=== PATIENT | female | born 1965 | race Caucasian/White ===

== ENCOUNTER 2021-09-24 07:03 | Day surgery (SDC) | payer MEDICARE, MEDICAID ==
[2021-09-17 15:22] LABS: BASOPHILS # (AUTO) 0.1 X10'3 (0-0.2); BASOPHILS % (AUTO) 0.9 % (0-1); EOSINOPHILS # (AUTO) 0.2 X10'3 (0-0.9); EOSINOPHILS % (AUTO) 3.5 % (0-6); LYMPHOCYTES # (AUTO) 1.7 X10'3 (1.1-4.8); MEAN CORPUSCULAR HEMOGLOBIN 28.6 PG (27.0-31.0); MEAN CORPUSCULAR HGB CONC 33.7 g/dL (33.0-36.5); MEAN CORPUSCULAR VOLUME 84.8 FL (78-98); MEAN PLATELET VOLUME 7.4 FL (7.4-10.4); MONOCYTES # (AUTO) 0.5 X10'3 (0-0.9); MONOCYTES % (AUTO) 9.5 % (2-12); NEUTROPHILS # (AUTO) 3.3 X10'3 (1.8-7.7); NEUTROPHILS % (AUTO) 57.1 % (42-75); PRE OP HEMATOCRIT 39.1 % (35.0-45.0); PRE OP HEMOGLOBIN 13.2 g/dL (12.0-16.0); PRE OP PLATELET COUNT 224 X10'3 (140-440); RED BLOOD COUNT 4.61 X10'6 (4.20-5.60); RED CELL DISTRIBUTION WIDTH 13.9 % (11.5-14.5)
[2021-09-17 15:37] LABS: ALBUMIN 4.1 G/DL (3.4-5.0); ALBUMIN/GLOBULIN RATIO 1.1 (1.1-1.5); ALKALINE PHOSPHATASE 50 IU/L (46-116); BLOOD UREA NITROGEN 12 MG/DL (7-18); BUN/CREATININE RATIO 11.8 (6.6-38.0); CALCIUM 9.2 MG/DL (8.5-10.1); CHLORIDE 102 MMOL/L (99-107); CREATININE 1.02 MG/DL (0.40-0.90); PRE OP ALT 32 U/L (30-65); PRE OP ANION GAP 8 (8-16); PRE OP AST 14 U/L (10-37); PRE OP BILIRUB, TOTAL 0.3 MG/DL (0.0-1.0); PRE OP GLUCOSE 103 MG/DL (70-104); PRE OP SODIUM 139 MMOL/L (135-145); TOTAL CARBON DIOXIDE 29.2 MMOL/L (24-32); TOTAL PROTEIN 7.7 G/DL (6.4-8.2); eGFR 56 ML/MIN
[2021-09-24] VITALS (10 sets, daily range): BP systolic 121–137; BP diastolic 65–86
[~2021-09-24] VITALS: Ht 264.2 cm; Wt 106.9 kg
[~2021-09-24 07:03] MED LIST: ARMO250T6 PO; BUPIVAcaine/PF 2.5 mg/ml (0.25%) 30ml vial ONE; FLUO40CA PO; HYDR25TA5 PO; LAMO150T6 PO; LEVO200T8 PO; LURA60TA PO; PRAZ1CAP5 PO; [UNRECOGNIZED DRUG - OTHER]; ceFAZolin inj. 2,000 MG in dextrose 5%-water 100 ML IV ONE; famotidine 20mg tablet PO ONE; ringers solution, lacted 1,000 ML IV SCH
[2021-09-24] MEDS ORDERED: LIDOcaine 0.5% (5mg/ml) 50ml vial ONE ×2 (07:10→08:22)
[2021-09-24] MEDS ORDERED: fentaNYL/PF 50MCG/1 ML 2ML syringe IV PRN ×2 (08:55)
[2021-09-24] MEDS ORDERED: ondansetron/PF 4mg/2ml inj IV PRN (08:55)
[2021-09-24] MEDS ORDERED: labetalol 20mg/4ml (5mg/ml) syringe IV PRN (08:55)
[2021-09-24] MEDS ORDERED: ringers solution, lacted 1,000 ML IV SCH (08:55)
[2021-09-24] MEDS ORDERED: morphine 2 MG/ML inj. syringe IV PRN (08:55)
[2021-09-24] MEDS ORDERED: hydrALAZINE 20mg/ml inj. IV PRN (08:55)
[2021-09-24] MEDS ORDERED: morphine 4 MG/ML inj SYRINge IV PRN (08:55)
[2021-09-24] MEDS ORDERED: fentaNYL/PF 50MCG/1 ML 2ML syringe ONE (09:37)
[2021-09-24] MEDS ORDERED: MIDAZolam 1 MG/ML 5ML VIAL ONE (09:38)
[2021-09-24] MEDS ORDERED: ketorolac trometh. 30mg/ml inj. ONE (09:57)
--- NOTE | 2021-09-24 10:08 | NUR ---
Received from OR via [facility], accompanied by Anesthesiologist and report given by GENEVA Anesthesiologist. PATIENT WAKING UP, DENIES PAIN, V/S WNL, 20G TO LUE, RIGHT WRIST DRESSING CDI. ICE AND ELEVATED RUE. Addendum: 09/24/21 at 1029 by Rashard Mcbride RN Amended: Links added.
--- NOTE | 2021-09-24 11:18 | NUR ---
ALL DISCHARGE CRITERIA HAS BEEN MET. VSS, PAIN AT A TOLERABLE LEVEL, ABLE TO SAFELY AMBULATE AND TRANSFER SELF. IV TAKEN OUT WITHOUT ANY COMPLICATIONS. ALL DISCHARGE INSTRUCTIONS COVERED WITH PATIENT AND ALL QUESTIONS ANSWERED. PATIENT TAKEN OUT VIA WHEELCHAIR TO PERSONAL VEHICLE WHERE FAMILY DROVE PATIENT HOME. Addendum: 09/24/21 at 1128 by Rashard Mcbride RN Amended: Links added.
== END 2021-09-24 11:18 | disposition home or self-care (01) ==
LOC: PAS 07:03
PROVIDERS: ATTEND Orthopaedic Surgery Hand Surgery
DX: G56.01 Carpal tunnel syndrome, right upper limb (principal); G56.21 Lesion of ulnar nerve, right upper limb; G47.30 Sleep apnea, unspecified; Z79.899 Other long term (current) drug therapy; Z98.890 Other specified postprocedural states; F17.210 Nicotine dependence, cigarettes, uncomplicated
CPT/HCPCS: 29848; 36415; 64718; 80053; 82948; 85025; 87811; 93005; J0690; J1885; J2250; J2405; J3010; J3490; J7030; J7060; J7120; Z7506; Z7512; A4215; A6449; A7000

== ENCOUNTER 2021-11-05 05:52 | Day surgery (SDC) | payer MEDICARE, MEDICAID ==
[2021-10-30 09:32] LABS: BASOPHILS # (AUTO) 0.1 X10'3 (0-0.2); EOSINOPHILS # (AUTO) 0.2 X10'3 (0-0.9); EOSINOPHILS % (AUTO) 3.7 % (0-6); LYMPHOCYTES % (AUTO) 30.5 % (21-51); MEAN CORPUSCULAR HEMOGLOBIN 28.6 PG (27.0-31.0); MEAN CORPUSCULAR HGB CONC 33.6 g/dL (33.0-36.5); MEAN PLATELET VOLUME 7.8 FL (7.4-10.4); MONOCYTES # (AUTO) 0.5 X10'3 (0-0.9); MONOCYTES % (AUTO) 8.4 % (2-12); NEUTROPHILS # (AUTO) 3.7 X10'3 (1.8-7.7); NEUTROPHILS % (AUTO) 56.4 % (42-75); PRE OP HEMATOCRIT 40.1 % (35.0-45.0); PRE OP HEMOGLOBIN 13.5 g/dL (12.0-16.0); PRE OP PLATELET COUNT 213 X10'3 (140-440); RED BLOOD COUNT 4.72 X10'6 (4.20-5.60); RED CELL DISTRIBUTION WIDTH 13.9 % (11.5-14.5)
[2021-10-30 09:43] LABS: ALBUMIN 4.2 G/DL (3.4-5.0); ALBUMIN/GLOBULIN RATIO 1.1 (1.1-1.5); ALKALINE PHOSPHATASE 44 IU/L (46-116); BLOOD UREA NITROGEN 15 MG/DL (7-18); BUN/CREATININE RATIO 12.8 (6.6-38.0); CALCIUM 9.4 MG/DL (8.5-10.1); CHLORIDE 101 MMOL/L (99-107); CREATININE 1.17 MG/DL (0.40-0.90); PRE OP ALT 26 U/L (30-65); PRE OP ANION GAP 9 (8-16); PRE OP BILIRUB, TOTAL 0.3 MG/DL (0.0-1.0); PRE OP GLUCOSE 103 MG/DL (70-104); PRE OP POTASSIUM 3.8 MMOL/L (3.4-5.1); PRE OP SODIUM 141 MMOL/L (135-145); TOTAL CARBON DIOXIDE 30.9 MMOL/L (24-32); eGFR 48 ML/MIN
[2021-10-30 09:58] LABS: PRE OP AST 14 U/L (10-37)
[~2021-11-05] VITALS: Ht 170.2 cm; Wt 103.7 kg
[~2021-11-05 05:52] MED LIST changes: -BUPIVAcaine/PF 2.5 mg/ml (0.25%) 30ml vial ONE; +CHOL20004 PO; +MULT-1085 PO
[2021-11-05] MEDS ORDERED: BUPIVAcaine/PF 2.5 mg/ml (0.25%) 30ml vial ONE (06:35)
[2021-11-05 07:20] VITALS: BP 148/74
[2021-11-05] MEDS ORDERED: LIDOcaine 1% 30ml preserv. free vial ONE (07:41)
[2021-11-05] MEDS ORDERED: fentaNYL/PF 50MCG/1 ML 2ML syringe ONE ×2 (07:50→08:12)
[2021-11-05] MEDS ORDERED: MIDAZolam 1 MG/ML 5ML VIAL ONE (07:50)
[2021-11-05] MEDS ORDERED: ketorolac trometh. 30mg/ml inj. ONE (07:53)
[2021-11-05] MEDS ORDERED: propofol inj 20 ML IV ONE (08:12)
[2021-11-05] MEDS ORDERED: LIDOcaine 2% (20mg/ml) 5ml vial ONE (08:12)
[2021-11-05 08:29] VITALS: BP 156/92
--- NOTE | 2021-11-05 08:29 | NUR ---
pt received from OR via [facility] with report from [facility]. Dr. Sánchez, pt arrives aaox4 no complaints of pain, resting comfortablly with no reports of pain. Positive CMS to TIN. On 2L NC, spo2 94%. Addendum: 11/05/21 at 0837 by Barney Reece RN Amended: Links added.
[2021-11-05 08:40] VITALS: BP 133/82
[2021-11-05 08:50] VITALS: BP 145/88
--- NOTE | 2021-11-05 09:09 | NUR ---
PT OUT OF RR VIA WHEELCHAIR INTO CARE OF PT'S DESIGNATED GRAPPLER VIA POV WITHOUT INCIDENT. ALL VSS, NO COMPLAINTS OF PAIN. DC PAPERWORK PROVIDED WITH EDUCATION, QUESTIONS ADDRESSED. Addendum: 11/05/21 at 0919 by Barney Reece RN Amended: Links added.
== END 2021-11-05 09:09 | disposition home or self-care (01) ==
LOC: PAS 05:52
PROVIDERS: ATTEND Orthopaedic Surgery Hand Surgery
DX: G56.02 Carpal tunnel syndrome, left upper limb (principal); G56.22 Lesion of ulnar nerve, left upper limb; F17.210 Nicotine dependence, cigarettes, uncomplicated; I10 Essential (primary) hypertension; Z79.899 Other long term (current) drug therapy; Z98.890 Other specified postprocedural states
CPT/HCPCS: 29848; 36415; 64718; 80053; 82948; 85025; 87811; J0690; J1885; J2250; J2704; J3010; J3490; J7030; J7060; J7120; Z7506; Z7512; A4215; A6449; A7000